=== PATIENT | female | born 2000 | race Caucasian/White ===

== ENCOUNTER 2023-06-27 09:30 | Outpatient (CLI) | payer BC, SELFPAY ==
--- OUTSIDE RECORDS SUMMARY | 2023-06-28 06:49 | XMS_ITS | Encounter Summary ---
Author Name Unknown Organization [facility] Address [address] [place] [address]. [place] [address] Care Team Providers Care Hand Turner Name Role Phone Nacho Davis PA-C Unavailable [phone] Nacho Davis PA-C Primary Care Provider [phone] Encounter Details Date Type Department Care Team (Latest Contact Info) Description 11/19/2022 Travel Social History Tobacco Use Types Packs/Day Years Used Date Smoking Tobacco: Never Assessed Sex and Gender Information Value Date Recorded Sex Assigned at Not on file Gender Identity Not on file Sexual Orientation Not on file COVID-19 Exposure Response Date Recorded In the last 10 days, have yo u been in contact with someone who was confirmed or suspected to have Coronavirus/COVID-19? No / Unsure 11/19/2022 9:34 AM CDT documented as of this encounter Plan of Treatment Not on file documented as of this encounter Visit Diagnoses Not on filedocumented in this encounter Additional Health Concerns Infection Onset Date Last Indicated Resolved Time Rule Out COVID-19 11/19/2022 11/19/2022 11/19/2022 2:21 PM CDT documented as of this encounter Care Teams Hand Turner Relationship Specialty Start Date End Date Nacho Davis PA-C [facility] [address] [place] [id number] PCP - General 11/19/22 Nacho Davis PA-C [facility] [address] [place] [id number] 11/19/22 documented as of this encounter
--- OUTSIDE RECORDS SUMMARY | 2023-06-28 06:49 | XMS_ITS | Continuity of Care Document ---
Author Name Unknown Organization [facility] Address [address] [address] [place] [address] Phone Care Team Providers Care Fork Operator Name Role Phone Unavailable Unavailable Unavailable Allergies, Adverse Reactions, Alerts Substance Reaction Status Criticality Penicillins Reaction Unknown Active No Informat ion Medications Medication Instructions Dosage Effective Dates (start - stop) Status Comments Vitamin unknown Take one tablet by mouth daily - Active Prevacid SoluTab 15 mg Rapid Dissolve Take one tablet by mouth two times per day - Active Procedures Procedure Date Ugi Endo; W/balloon Dilat Esop 06 Ugi Endo; W/bx 1/mx Offic Cons New/estab Mod-hi 60 06 Routine Serum Collection Advance Directives Directive Yes / No Effective Date File Name No Information Encounters Encounter Description Practice Location Reason(s) For Visit Diagnoses Date Provider Providers Copied on Encounter [facility], [address] [address], [place], [place], [id number], [place] tel:[phone] [facility] No Information 6 No Information [facility], [address] [address], [place], [place], [id number], [place] tel:[phone] [facility] No Information Feb- 5-200 6 No Information Referring Provider: Osmar Miranda MD [address], [place], [address]. tel:[phone] Offic Cons New/estab Mod-hi 60 [facility], [address] [address], [place], [place], [id number], [place] tel:[phone] [facility] Vomiting Alone 6 No Information Referring Provider: Osmar Miranda MD [address], [place], [address]. tel:[phone] Family History Family Member Type Diagnosis Age At Onset No Information Payers Payer name Insurance type Covered alliance party ID Authortirsoananda lenojesus(s) [employer] [facility] [id number] Social History Type Description Quantity Date Captured Comments Sex Female Smoking Status No Information Chief Complaint And Reason For Visit No Information Reason For Referral Reason For Referral No Information History Of Present Illness Encounter Date Complaint History Of Prese nt Illness No Information Functional Status Date Functional Assessmen t No Information Instructions Date Instruction Additional Infor mation No Information Assessments Type Assessment Date No Information Patient Care Teams Name Effective Dates (start - stop) Status Members No Information
--- OUTSIDE RECORDS SUMMARY | 2023-06-28 06:49 | XMS_ITS | Clinical Summary ---
Author Name Unknown Organization [facility] Address [place], [place] [address] Care Team Providers Care Card Puncher Name Role Phone Pcp, No Primary Care Provider Unavailabl e Allergies Active Allergy Reactions Criticality Noted Date Comments Amoxicillin Hives 08/23/2006 Penicillins Hives 02/25/2022 Medications No known medications Active Problems Problem Noted Date Diagnosed Date Other infants, unspecified (weight)(765. 10) 08/23/2006 Overview: 25 weeks Chronic respiratory disease arising in the perin atal period 08/23/2006 Anemia, unspecified 08/23/2006 Encounters Date Type Department Care Team Description 06/27/2023 Lab Requisition [facility] [phone] Nacho Davis, FAYC from Last 3 Months Immunizations Name Administration Dates Next Due DTaP 09/24/2003, 0,04/10/1999,01/30 HIB PRP-T (ActHIB,Hiberix) 01/30/1999 HIB-HepB (Comvax) 10/05/1999,10/05/1999 Hepatitis B (Peds) 01/03/1999,1998 Human Papilloma Virus Vaccine 12/07/2011 Inactivated Polio Vaccine 09/24/2003,07/06/1999, 01/30/1999 Influenza, IIV3 (Age >=3 years) 03/28/2006 MMR 09/24/2003,10/05/1999 Meningococcal Vaccine (Menveo) 12/07/2011 Pneumococcal conj 7-Valent (Prevnar 7) 1,04/04/2000 Tdap 12/07/2011 Varicella Vaccine 12/07/2011,10/05/1999 Social History Tobacco Use Types Packs/Day Years Used Date Smoking Tobacco: Never Smokeless Tobacco: Never Alcohol Use Standard Drinks/Week Comments Yes 0 (1 standard drink = 0.6 oz pur e alcohol) occasionally Sex and Gender Information Value Date Recorded Sex Assigned at Not on file Gender Identity Not on file Sexual Orientation Not on file Obstetrics History Last Filed Vital Signs Vital Sign Reading Time Taken Comments Blood Pressure 124/72 06/24/2022 8:59 AM CUPOLA TENDER Pulse 81 06/24/2022 8:59 AM [employer]OLA TENDER Temperature 36.4 ??C (97.5 ??F) 06/24/2022 8:59 AM CS T Respiratory Rate 18 06/24/2022 8:59 AM CUPOLA TENDER Oxygen Saturation 98% 06/24/2022 8:59 AM CUPOLA TENDER Inhaled Oxygen Concentration - - Weight 47.6 kg (105 lb) 06/08/2022 8:31 AM CUPOLA TENDER Height 157.5 cm (5' 2) 05/11/2021 11:26 AM C[employer]OLA TENDER Body Mass Index 19.2 05/11/2021 11:26 AM CUPOLA TENDER Plan of Treatment Health Maintenance Due Date Last Done Comments Depression screening for age 12+ 2010 HPV series for age 9-26 (2 - 2-dose series) 06/07/2012 12/07/2011 HIV for age 15-65 2013 Hepatitis C screening for ag e 18-79 2016 Chlamydia for age 16-24 08/04/2021 08/04/2020 Tetanus booster 12/06/2021 12/07/2011 BMI (ht and wt on same day) for age 18+ 05/11/2022 05/11/2021 COVID-19 vaccine series (3 - 2022- season) 2023 12/09/2020, 11/07/2020 Influenza for age 9-49 02/15/2023 03/28/2006 Pap test for age 21-65 07/06/2024 2, 07/06/2021 Pneumococcal series for age 6-64 Aged Out 07/25/2000, 04/04/2000 No longer eligible based on patient's age to complete this topic Tdap Completed 12/07/2011 Care Teams Card Puncher Relationship Specialty Start Date End Date Pcp, No . PCP - General 07/13/13
--- OUTSIDE RECORDS SUMMARY | 2023-06-28 06:49 | XMS_ITS | Encounter Summary ---
Author Name Unknown Organization [facility] Address [address] [facility] [place] [address] Care Team Providers Care [place] C[facility] Name Role Phone Nacho Davis PA-C Unavailable [phone] Nacho Davis PA-C Primary Care Provider [phone] Reason for Visit * Reason Comments Chills Encounter Details Date Type Department Care Team (Late st Contact Info) Description 11/19/2022 1:59 PM CDT - 11/19/2022 3:53 PM CDT Emergency [facility] Emergency Dept [address] [place] [address] [phone] Garfield Fraser MD [facility] [address] [place] [address] [place] [address] [id number] Abdominal pain, right lower quadrant; Calculus of gallbladder without cholecystitis without obstruction; Strep throat Discharge Disposition: Home or Self Care Social History Tobacco Use Types Packs/Day Years [...] AM CDT documented as of this encounter Last Filed Vital Signs Vital Sign Reading Time Taken Comments Blood Pressure 106/58 11/19/2022 3:50 PM CDT Pulse 95 11/19/2022 3:50 PM CDT Temperature 36.1 ??C (97 ??F) 11/19/2022 9:43 AM CDT Respiratory Rate 19 11/19/2022 9:43 AM CDT Oxygen Saturation 99% 11/19/2022 3:50 PM CDT Inhaled Oxygen Concentration - - Weight - - Height - - Body Mass Index - - documented in this encounter Discharge Instructions * Attachments The following attachments cannot be sent through Care Everywhere. * Pharyngitis, Strep (Confirmed) (Omani) * Gallstones, What are (Omani) documented in this encounter Medications at Time of Discharge Medication Sig Dispensed Refills Start Date End Date cephALEXin (KEFLEX) 500 MG capsule Take 1 capsule (500 mg) by mouth 4 times daily for 7 days 28 capsule 0 11/19/2022 11/26/2022 documented as of this encounter ED Notes * Wan Eckert RN - 11/19/2022 9:41 AM CDT Abdominal pain, shaking, hot and cold flashes and chills since this morning. Reports little PO intake, having period and abdominal cramps right now too. Hypertensive in triage otherwise VSS on RA. nauseated * Garfield Fraser MD - 11/19/2022 9:33 AM CDT History Chief Complaint: Chills The history is provided by the patient. She Villegas Lade is a 22 year old female who presents with abdominal pain. The patient reports that beginning this morning, she began feeling hot and subsequently became dizzy, shaky, and developed abdominal pain. She states that her abdominal pain has since resolved, but is having cramping from her period. She adds that she had diarrhea earlier this morning. She denies any sore throat, nausea, or urinary symptoms. She also denies being around anyone sick recently. She still has her appendix. Independent Historian: None - Patient Only Review of External Notes: Medications: The patient is not currently taking any prescribed medications. Past Medical History: Chronic respiratory disease arising in the period Anemia Past Surgical History: History reviewed. No pertinent past surgical history on file. Physical Exam Patient Vitals for the past 24 hrs: BP Temp Temp src Pulse Resp SpO2 11/19/22 0943 (!) 127/104 97 ??F (36.1 ??C) Temporal 58 19 100 % Physical Exam HENT: mmm, no rhinorrhea, mild posterior pharyngeal erythema no significant hypertrophy or exudates Eyes: periorbital tissues and sclera normal Neck: supple, no abnormal swelling, mild anterior cervical lymphadenopathy Lungs: CTAB, no resp distress CV: rrr, no m/r/g, ppi Abd: soft, tenderness in the right lower quadrant. No right upper quadrant tenderness,, nondistended, no rebound/masses/guarding/hsm Ext: no peripheral edema Skin: warm, dry, well perfused, no rashes/bruising/lesions on exposed skin Neuro: alert, MAEE, no gross motor or sensory deficits, gait stable Psych: Normal mood, normal affect Emergency Department Course Imaging: Abd/pelvis CT, IV contrast only TRAUMA / AAA Final Result IMPRESSION: 1. Appendix measures 6 mm and shows only minimal wall prominence. Findings are equivocal for appendicitis. No abscess or free air. If symptoms progress, repeat scanning should be considered. 2. Moderate free pelvic fluid. 3. Potential faint gallstones and mild gallbladder wall prominence. JONATHAN PARIKH MD SYSTEM ID: [id number] Report per radiology Laboratory: Labs Ordered and Resulted from Time of ED Arrival to Time of ED Departure BASIC METABOLIC PANEL - Abnormal Result Value Sodium 141 Potassium 3.5 Chloride 106 Carbon Dioxide (CO2) 21 (*) Anion Gap 14 Urea Nitrogen 15.1 Creatinine 0.77 Calcium 8.9 Glucose 142 (*) GFR Estimate >90 CBC WITH PLATELETS AND DIFFERENTIAL - Abnormal WBC Count 12.4 (*) RBC Count 4.32 Hemoglobin 13.9 Hematocrit 40.2 MCV 93 MCH 32.2 MCHC 34.6 RDW 12.2 Platelet Count 263 % Neutrophils 71 % Lymphocytes 18 % Monocytes 8 % Eosinophils 1 % Basophils 1 % Immature Granulocytes 1 NRBCs per 100 WBC 0 Absolute Neutrophils 9.0 (*) Absolute Lymphocytes 2.2 Absolute Monocytes 1.0 Absolute Eosinophils 0.1 Absolute Basophils 0.1 Absolute Immature Granulocytes 0.1 Absolute NRBCs 0.0 GROUP A STREPTOCOCCUS PCR THROAT SWAB - Abnormal Group A strep by PCR Detected (*) HCG QUALITATIVE - Normal hCG Serum Qualitative Negative INFLUENZA A/B, RSV, & SARS-COV2 PCR - Normal Influenza A PCR Negative Influenza B PCR Negative RSV PCR Negative SARS CoV2 PCR Negative Emergency Department Course & Assessments: Interventions: Medications cephALEXin (KEFLEX) capsule 500 mg (has no administration in time range) 0.9% sodium chloride BOLUS (0 mLs Intravenous Stopped 11/19/22 1111) ondansetron (ZOFRAN) injection 4 mg (4 mg Intravenous $Given 11/19/22 0955) ketorolac (TORADOL) injection 15 mg (15 mg Intravenous $Given 11/19/22 1427) CT Scan Flush (54 mLs Intravenous $Given 11/19/22 1434) iopamidol (ISOVUE-370) solution 500 mL (55 mLs Intravenous $Given 11/19/22 1434) Independent Interpretation (X-rays, CTs, rhythm strip): None Consultations/Discussion of Management or Tests: None Assessments: ED Course as of 11/19/22 1544 Mon Nov 19, 2022 1406 I obtained history and examined the patient as noted above. 1534 I rechecked the patient, who is amenable to discharge. Social Determinants of Health affecting care: None Disposition: The patient was discharged to home. Impression & Plan 22-year-old female presenting with abdominal pain myalgias and chills strep test did result as positive however she had localizing tenderness in the right lower quadrant on my examination and only mild pharyngeal erythematous changes. We had a shared decision making discussion about empiric treatment of strep versus further diagnostics given the right lower quadrant pain ultimately ended up doinga CT scan of the abdomen and pelvis this does not show significant findings of appendicitis and overall clinical scenario with the presenting symptoms exam diagnostics will discharge home treat the strep and follow clinically. She was made aware of incidental finding of cholelithiasis. Diagnosis: ICD-10-CM 1. Abdominal pain, right lower quadrant R10.31 2. Calculus of gallbladder without cholecystitis without obstruction K80.20 3. Strep throat J02.0 Discharge Medications: New Prescriptions CEPHALEXIN (KEFLEX) 500 MG CAPSULE Take 1 capsule (500 mg) by mouth 4 times daily for 7 days Scribe Disclosure: Lori, PRABHU DAVIS, am serving as a scribe at 3:23 PM on 11/19/2022 to document services personally performed by Garfield Fraser MD based on my observations and the provider's statements to me. 11/19/2022 Garfield Fraser MD Walker, Jerome Richard, MD 11/19/22 1546 documented in this encounter Plan of Treatment Not on file documented as of this encounter Procedures Procedure Name Priority Date/Time Associated Diagnosis Comments CT ABDOMEN PELVIS W CONTRAST STAT 11/19/2022 2:40 PM CDT INFLUENZA A/B, RSV, & SARS-COV2 PCR STAT 11/19/2022 1:24 PM CDT GROUP A STREPTOCOCCUS PCR THROAT SWAB STAT 11/19/2022 1:24 PM CDT EXTRA TUBE STAT 11/19/2022 9:54 AM CDT EXTRA BLUE TOP TUBE STAT 11/19/2022 9 :54 AM CDT CBC WITH PLATELETS AND DIFFERENTIAL STAT 11/19/2022 9:54 AM CDT CBC WITH PLATELETS & DIFFERENTIAL STAT 11/19/2022 9:54 AM CDT HCG QUALITATIVE STAT 11/19/2022 9:54 AM CDT BASIC METABOLIC PANEL STAT 11/19/2022 9:54 AM CDT documented in this encounter Results * Abd/pelvis CT, IV contrast only TRAUMA / AAA (11/19/2022 2:40 PM CDT) Anatomical Region Laterality Modality Abdomen/Pelvis, SUBRAD CT SINAN DY, UMP CT ABDOMEN PELVIS, RAD CT Computed Tomography Impressions 11/19/2022 3:15 PM CDT IMPRESSION: 1. ??Appendix measures 6 mm and shows only minimal wall prominence. Findings are equivocal for appendicitis. No abscess or free air. If symptoms progress, repeat scanning should be considered. 2. ??Moderate free pelvic fluid. 3. ??Potential faint gallstones and mild gallbladder wall prominence. JONATHAN PARIKH MD SYSTEM ID: ??[id number] Narrative 11/19/2022 3:[address] ABDOMEN PELVIS WITH CONTRAST 11/19/2022 2:40 PM CLINICAL HISTORY: Right lower quadrant pain, chills, nausea TECHNIQUE: CT scan of the abdomen and pelvis was performed following injection of IV contrast. Multiplanar reformats were obtained. Dose reduction techniques were used. CONTRAST: 55mL Isovue-370 COMPARISON: None. FINDINGS: LOWER CHEST: Normal. HEPATOBILIARY: Potential ill-defined gallstones and mild gallbladder wall prominence. No acute liver abnormality. PANCREAS: Normal. SPLEEN: Normal. ADRENAL GLANDS: Normal. KIDNEYS/BLADDER: Normal. BOWEL: The appendix demonstrates some mild wall prominence, and measures 0.6 cm series 3 image 144. No convincing adjacent inflammation. No bowel obstruction. Remainder of the bowel shows no acute abnormality. PELVIC ORGANS: Moderate free pelvic fluid. ADDITIONAL FINDINGS: None. MUSCULOSKELETAL: Normal. Procedure Note Jonathan Parikh MD - 11/19/2022 CT ABDOMEN PELVIS WITH CONTRAST 11/19/2022 2:40 PM CLINICAL HISTORY: Right lower quadrant pain, chills, nausea TECHNIQUE: CT scan of the abdomen and pelvis was performed following injection of IV contrast. Multiplanar reformats were obtained. Dose reduction techniques were used. CONTRAST: 55mL Isovue-370 COMPARISON: None. FINDINGS: LOWER CHEST: Normal. HEPATOBILIARY: Potential ill-defined gallstones and mild gallbladder wall prominence. No acute liver abnormality. PANCREAS: Normal. SPLEEN: Normal. ADRENAL GLANDS: Normal. KIDNEYS/BLADDER: Normal. BOWEL: The appendix demonstrates some mild wall prominence, and measures 0.6 cm series 3 image 144. No convincing adjacent inflammation. No bowel obstruction. Remainder of the bowel shows no acute abnormality. PELVIC ORGANS: Moderate free pelvic fluid. ADDITIONAL FINDINGS: None. MUSCULOSKELETAL: Normal. IMPRESSION: 1. Appendix measures 6 mm and shows only minimal wall prominence. Findings are equivocal for appendicitis. No abscess or free air. If symptoms progress, repeat scanning should be considered. 2. Moderate free pelvic fluid. 3. Potential faint gallstones and mild gallbladder wall prominence. JONATHAN PARIKH MD SYSTEM ID: [id number] Garfield Fraser MD IMG CT ORDERABL ES * Symptomatic Influenza A/B, RSV, & SARS-CoV2 PCR (COVID-19) Nasopharyngeal (11/19/2022 1:24 PM CDT) Influenza A PCR Negative Negative 11/19/2022 2:21 PM CDT [facility] Influenza B PCR Negative Negative 11/19/2022 2:21 PM CDT [facility] RSV PCR Negative Negative 11/19/2022 2:21 PM CDT [facility] SARS CoV2 PCR Negative Negative 11/19/2022 2:21 PM CDT [facility] Comment:NEGATIVE: SARS-CoV-2 (COVID-19) RNA not detected, presumed negative. Swab NASOPHARYNGEAL STRUCTURE / Unknown Non-blood Collection / Unknown 11/19/2022 1:24 PM CDT 11/19/2022 1:34 PM CDT [facility] - 11/19/2022 2:21 PM CDT Testing was performed using the Xpert Xpress CoV2/Flu/RSV Assay on the [employer] GeneXpert Instrument. This test should be ordered for the detection of SARS-CoV-2, influenza, and RSV viruses in individuals who meet clinical and/or epidemiological criteria. Test performance is unknown in asymptomatic patients. This test is for in vitro diagnostic use under the FDA EUA for laboratories certified under CLIA to perform high or moderate complexity testing. This test has not been FDA cleared or approved. A negative result does not rule out the presence of PCR inhibitors in the specimen or target RNA in concentration below the limit of detection for the assay. If only one viral target is positive but coinfection with multiple targets is suspected, the sample should be re-tested with another FDA cleared, approved, or authorized test, if coinfection would change clinical management. This test was validated by the [facility] [employer]. These laboratories are certified under the Clinical Laboratory Improvement Amendments of 1988 (CLIA-88) as qualified to perform high complexity laboratory testing. Micky Araiza MD LAB - MICRO GENER AL ORDERABLES [facility] Lab [address] Lab (1st floor, no room number) [place] [address], [facility] [phone] * (ABNORMAL) Group A Streptococcus PCR Throat Swab (11/19/2022 1:24 PM CDT) Pathologist [facility] Group A strep by PCR Detected( A) Not Detected 11/19/2022 2:10 PM CDT [facility] Swab STRUCTURE OF ANTERIOR PORTION OF NECK / Unknown Non-blood Collection / Unknown 11/19/2022 1:24 PM CDT 11/19/2022 1:34 PM CDT [facility] - 11/19/2022 2:10 PM CDT The Xpert Xpress Strep A test, performed on the [employer] Systems, is a rapid, qualitative in vitro diagnostic test for the detection of Streptococcus pyogenes (Group A ? - hemolytic Streptococcus, Strep A) in throat swab specimens from patients with signs and symptoms of pharyngitis. The Xpert Xpress Strep A test can be used as an aid in the diagnosis of Group A Streptococcal pharyngitis. The assay is not intended to monitor treatment for Group A Streptococcus infections. The Xpert Xpress Strep A test utilizes an automated real-time polymerase chain reaction (PCR) to detect Streptococcus pyogenes DNA. Micky Araiza MD LAB - MICRO GENER AL ORDERABLES LABORATORY [facility] Acute Care Lab [address] Lab (1st floor, no room number) [place] [address] [phone] * (ABNORMAL) CBC with platelets and differential (11/19/2022 9:54 AM CDT) Pathologist [facility] WBC Count 12.4(H) 4.0 - 11.0 10e3/uL 11/19/2022 10:06 AM CDT [facility] RBC Count 4.32 3.80 - 5.20 10e6/uL 11/19/2022 10:06 AM CDT [facility] Hemoglobin 13.9 11.7 - 15.7 g/dL 11/19/2022 10:06 AM CDT [facility] Hematocrit 40.2 35.0 - 47.0 % 11/19/2022 10:06 AM CDT [facility] MCV 93 78 - 100 fL 11/19/2022 10:06 AM CDT [facility] MCH 32.2 26.5 - 33.0 pg 11/19/2022 10:06 AM CDT [facility] MCHC 34.6 31.5 - 36.5 g/dL 11/19/2022 10:06 AM CDT [facility] RDW 12.2 10.0 - 15.0 % 11/19/2022 10:06 AM CDT [facility] Platelet Count 263 150 - 450 10e3/uL 11/19/2022 10:06 AM CDT [facility] % Neutrophils 71 % 11/19/2022 10:06 AM CDT [facility] % Lymphocytes 18 % 11/19/2022 10:06 AM CDT [facility] % Monocytes 8 % 11/19/2022 10:06 AM CDT [facility] % Eosinophils 1 % 11/19/2022 10:06 AM CDT [facility] % Basophils 1 % 11/19/2022 10:06 AM CDT [facility] % Immature Granulocytes 1 % 11/19/2022 10:06 AM CDT [facility] NRBCs per 100 WBC 0 <1 /100 023 10:06 AM CDT [facility] Absolute Neutrophils 9.0(H) 1.6 - 8.3 10e3/uL 11/19/2022 10:06 AM CDT [facility] Absolute Lymphocytes 2.2 0.8 - 5.3 10e3/uL 11/19/2022 10:06 AM CDT [facility] Absolute Monocytes 1.0 0.0 - 1.3 10e3/uL 11/19/2022 10:06 AM CDT [facility] Absolute Eosinophils 0.1 0.0 - 0.7 10e3/uL 11/19/2022 10:06 AM CDT [facility] Absolute Basophils 0.1 0.0 - 0.2 10e3/uL 11/19/2022 10:06 AM CDT [facility] Absolute Immature Granulocytes 0.1 <=0.4 10e3/uL 11/19/2022 10:06 AM CDT [facility] Absolute NRBCs 0.0 10e3/uL 11/19/2022 10:06 AM CDT [facility] Blood BLOOD SPECIMEN / Unknown Venipuncture / Unknown 11/19/2022 9:54 AM CDT 11/19/2022 10:04 AM CDT Garfield Fraser MD LAB - BLOOD ORD ERABLES LABORATORY [facility] Acute Care Lab [address] Lab (1st floor, no room number) [place] [phone], [facility] [phone] * Extra Blue Top Tube (11/19/2022 9:54 AM CDT) Hold Specimen JIC 11/19/2022 11:16 AM CDT LABORATORY Blood STRUCTURE OF RIGHT UPPER LIMB / Unknown Venipuncture / Unknown 11/19/2022 9:54 AM CDT 11/19/2022 10:04 AM CDT Garfield Fraser MD LAB - BLOOD ORD ERABLES Performing Organization Address [facility]/ZIP Co de Phone Number [facility] [address] Lab (1st floor, no room number) [place] [address], [facility] [phone] * HCG QUALitative (blood) (11/19/2022 9:54 AM CDT) Pathologist [facility] hCG Serum Qualitative Negative Negative JACINTA 11/19/2022 10:26 AM CDT [facility] Comment:This test is for scr eening purposes. Results should be interpreted along with the clinical picture. Confirmation testing is available if warranted by ordering [id number], HCG Quantitative . Blood BLOOD SPECIMEN / Unknown Venipuncture / Unknown 11/19/2022 9:54 AM CDT 11/19/2022 10:02 AM CDT Garfield Fraser MD LAB - BLOOD ORD ERABLES LABORATORY [facility] Lab [address] Lab (1st floor, no room number) [place] [address], [facility] [phone] * (ABNORMAL) Basic metabolic panel (BMP) (11/19/2022 9:54 AM CDT) Pathologist [facility] Sodium 141 136 - 145 mmol/L 11/19/2022 10:24 AM CDT LABORATORY Potassium 3.5 3.4 - 5.3 mmol/L 11/19/2022 10:24 AM CDT LABORATORY Chloride 106 98 - 107 mmol/L 11/19/2022 10:24 AM CDT LABORATORY Carbon Dioxide (CO2) 21(L) 22 - 29 mmol/L 11/19/2022 10:24 AM CDT LABORATORY Anion Gap 14 7 - 15 mmol/L 11/19/2022 10:24 AM CDT LABORATORY Urea Nitrogen 15.1 6.0 - 20.0 mg/dL 11/19/2022 10:24 AM CDT LABORATORY Creatinine 0.77 0.51 - 0.95 mg/dL 11/19/2022 10:24 AM CDT LABORATORY Calcium 8.9 8.6 - 10.0 mg/dL 11/19/2022 10:24 AM CDT LABORATORY Glucose 142(H) 70 - 99 mg/dL 11/19/2022 10:24 AM CDT LABORATORY GFR Estimate >90 >60 mL/min/1.7 3m2 11/19/2022 10:24 AM CDT LABORATORY Comment:eGFR calculated usin 2020 CKD-EPI equation. Blood BLOOD SPECIMEN / Unknown Venipuncture / Unknown 11/19/2022 9:54 AM CDT 11/19/2022 10:04 AM CDT Garfield Fraser MD LAB - BLOOD ORD ERABLES LABORATORY [facility] Lab [address] [facility] Lab (1st floor, no room number) [place] [address], [facility] [phone] documented in this encounter Visit Diagnoses Diagnosis Abdominal pain, right lower quadrant Calculus of gallbladder without cholecystitis without obstruction Calculus of gallbladder without mention of cholecystitis or obstruction Strep throat Streptococcal sore throat documented in this encounter Administered Medications Inactive Administered Medications - up to 3 most recent administrations Medication Order MAR Action Action Date Dose Rate Site 0.9% sodium chloride BOLUS Intravenous, 1,000 mL, ONCE, at 1,000 mL/hr, Administer over 1 Hours, On Sat11/19/22 at 0950, For 1 dose $New Bag 11/19/2022 9:55 AM CDT 1,000 mLs 1000 mL/hr cephALEXin (KEFLEX) capsule 500 mg STAT, 500 mg, Oral, ONCE, On Sat11/19/22 at 1540, For 1 dose, Indications: strep $Given 11/19/2022 3:50 PM [address]T [address] Scan Flush Intravenous, 100 mL, ONCE, On Sat11/19/22 at 1435, For 1 dose, This entry is for use by Radiology to intermittently used as a flush in patients receiving a CT scan. $Given 11/19/2022 2:34 PM CDT 54 mLs iopamidol (ISOVUE-370) solution 500 mL 500 mL, Intravenous, ONCE, On Sat11/19/22 at 1435, For 1 dose $Given 11/19/2022 2:34 PM CDT 55 mLs ketorolac (TORADOL) injection 15 mg 15 mg, Intravenous, ONCE, On Sat11/19/22 at 1425, For 1 dose, Can cause pain on injection. If ordered intravenously (IV) : administer through a running maintenance fluid over 1 minute followed by a flush. If patient complains of pain on injection, may dilute 15-30 mg in 5 mL and push over 1 to 2 minutes. $Given 11/19/2022 2:27 PM CDT 15 mg ondansetron (ZOFRAN) injection 4 mg 4 mg, Intravenous, ONCE, Administer over 2-5 Minutes, On Sat11/19/22 at 0950, For 1 dose, Irritant. $Given 11/19/2022 9:55 AM CDT 4 mg documented in this encounter Active and Recently Administered Medications Times are shown in CDT. Scheduled Medication Order 11/17/2022 11/18/2022 11/19/2022 0.9% sodium chloride BOLUS (COMPLETED) Intravenous, 1,000 mL, ONCE, at 1,000 mL/hr, Administer over 1 Hours, On Sat11/19/22 at 0950, For 1 dose 0955 ($New Bag - Pro vider: Wan Eckert RN)1111 (Stopped - Provider: Wan Eckert RN) cephALEXin (KEFLEX) capsule 500 mg (COMPLETED) STAT, 500 mg, Oral, ONCE, On Sat11/19/22 at 1540, For 1 dose, Indications: strep 1550 ($Given - Provi madan: Elicia Obrien RN) CT Scan Flush (COMPLETED) Intravenous, 100 mL, ONCE, On Sat11/19/22 at 1435, For 1 dose, This entry is for use by Radiology to intermittently used as a flush in patients receiving a CT scan. 1434 ($Given - Provi madan: Shama A Lamey) iopamidol (ISOVUE-370) solution 500 mL (COMPLETED) 500 mL, Intravenous, ONCE, On Sat11/19/22 at 1435, For 1 dose 1434 ($Given - Provi madan: Shama A Lamey) ketorolac (TORADOL) injection 15 mg (COMPLETED) 15 mg, Intravenous, ONCE, On Sat11/19/22 at 1425, For 1 dose, Can cause pain on injection. If ordered intravenously (IV) : administer through a running maintenance fluid over 1 minute followed by a flush. If patient complains of pain on injection, may dilute 15-30 mg in 5 mL and push over 1 to 2 minutes. 1427 ($Given - Provi madan: Geena Calvillo RN) ondansetron (ZOFRAN) injection 4 mg (COMPLETED) 4 mg, Intravenous, ONCE, Administer over 2-5 Minutes, On Sat11/19/22 at 0950, For 1 dose, Irritant. 0955 ($Given - Provi madan: Wan Eckert RN) documented in this encounter Additional Health Concerns Infection Onset Date Last Indicated Resolved Time Rule Out COVID-19 11/19/2022 11/19/2022 11/19/2022 2:21 PM CDT documented as of this encounter Care Teams [place] [facility] Relationship Specialty Start Date End Date Nacho Davis PA-C [facility] [address] [place] [address] PCP - General 11/19/22 Nacho Davis PA-C [facility] [address] [place] [address] 11/19/22 documented as of this encounter
--- OUTSIDE RECORDS SUMMARY | 2023-06-28 06:49 | XMS_ITS | Clinical Summary ---
Author Name Unknown Organization [facility] Address [address] [place] [address]. [place] [address] Care Team Providers Care Commissary Steward Name Role Phone Nacho Davis PA-C Unavailable [phone] Nacho Davis PA-C Primary Care Provider [phone] Allergies Active Allergy Reactions Criticality Noted Date Comments Penicillin G 11/19/2022 Social History Tobacco Use Types Packs/Day Years Used Date Smoking Tobacco: Never Assessed Adolescent Education Answer Date Record ed Getting School Help Needed Not on file 04/02 Sex and Gender Information Value Date Recorded Sex Assigned at Not on file Gender Identity Not on file Sexual Orientation Not on file Last Filed Vital Signs Vital Sign Reading Time Taken Comments Blood Pressure 106/58 11/19/2022 3:50 PM CDT Pulse 95 11/19/2022 3:50 PM CDT Temperature 36.1 ??C (97 ??F) 11/19/2022 9:43 AM CDT Respiratory Rate 19 11/19/2022 9:43 AM CDT Oxygen Saturation 99% 11/19/2022 3:50 PM CDT Inhaled Oxygen Concentration - - Weight - - Height - - Body Mass Index - - Plan of Treatment Health Maintenance Due Date Last Done Comments ADVANCE CARE PLANNING 1998 ANNUAL REVIEW OF HM ORDERS 1998 CHLAMYDIA SCREENING 1998 YEARLY PREVENTIVE VISIT 1998 HIV SCREENING 2013 HEPATITIS C SCREENING 2016 PAP 09/30/2019 DTAP/TDAP/TD IMMUNIZATION (6 - Td or Tdap) 12/06/2021 12/07/2011, 09/24/2003, 12/22/1999, Additional history exists COVID-19 Vaccine ( season) 2023 12/09/2020, 11/07/2020 INFLUENZA VACCINE (#1) 2023 8, 05/02/2007, 03/28/2006 PHQ-2 (once per calendar year) 2023 HEPATITIS B IMMUNIZATION Completed 000, 01/03/1999, 1998 Pneumococcal Vaccine: Pediatrics (0 to 5 Years) and At-Risk Patients (6 to 64 Years) Aged Out 07/25/2000, 04/04/2000 No longer eligibl e based on patient's age to complete this topic IPV IMMUNIZATION Completed 09/24/2003, , 01/30/1999 MENINGITIS IMMUNIZATION Aged Out 12/07/2011, 05/24 No longer eligible based on patient's age to complete this topic HPV IMMUNIZATION Completed 02/26/2014, 12/07/2011 RSV MONOCLONAL ANTIBODY Aged Out No l onger eligible based on patient's age to complete this topic Care Teams Commissary Steward Relationship Specialty Start Date End Date Nacho Davis PA-C [address] [place] [address] PCP - General 11/19/22 Nacho Davis PA-C [address] [place] [address] 11/19/22
--- OUTSIDE RECORDS SUMMARY | 2023-06-28 06:49 | XMS_ITS | Referral Summary ---
Author Name Unknown Organization [facility] Address [address] [place] [address]. [place] [address] Care Team Providers Care Oil Program Compliance Specialist Name Role Phone Nacho Davis PA-C Unavailable [phone] Nacho Davis PA-C Primary Care Provider [phone] Allergies Active Allergy Reactions Criticality Noted Date [...] Mass Index - - Plan of Treatment Not on file Care Teams Oil Program Compliance Specialist Relationship Specialty Start Date End Date Nacho Davis PA-C [place] [address] [place] [address] PCP - General 11/19/22 Nacho Davis PA-C [place] [address] [place] [address] 11/19/22
== END 2023-06-27 09:31 | disposition home or self-care (01) ==
LOC: NFLDREF 06-28 06:47
PROVIDERS: PCP Physician Assistant Medical; Referring Provider Physician Assistant Medical; Visit Provider Physician Assistant Medical
DX: Z00.00 Encounter for general adult medical examination without abnormal findings (principal); R51.9 Headache, unspecified; G44.221 Chronic tension-type headache, intractable; Z11.3 Encounter for screening for infections with a predominantly sexual mode of transmission
CPT/HCPCS: 87491; 87591

== ENCOUNTER 2024-10-12 09:05 | Outpatient (CLI) | payer BC, SELFPAY | END 2024-10-12 09:06 | disposition home or self-care (01) | PROVIDERS: PCP Physician Assistant Medical; Visit Provider Physician Assistant Medical | DX: R51.9 Headache, unspecified (principal); G47.00 Insomnia, unspecified; Z13.29 Encounter for screening for other suspected endocrine disorder; Z13.6 Encounter for screening for cardiovascular disorders | CPT/HCPCS: 80053; 80061; 84443 ==

== ENCOUNTER 2025-03-26 10:32 | Outpatient (CLI) | payer OTHER, SELFPAY ==
--- NOTE | 2025-03-26 10:45 | CRLHL7_ITS ---
For Patients: As a result of the Century Cures Act, medical imaging exams and procedure reports are released immediately into your electronic medical record. You may view this report before your referring provider. If you have questions, please contact your health care provider. Indication: Palpable lump on right side of neck Technique: Grayscale and color Doppler ultrasound of the right neck soft tissues performed in the area of concern. Comparison: None Findings: Subcutaneous hypoechoic nodule noted which measures 5 x 2 x 8 millimeters. Mild internal color flow noted along with a subtle fatty hilum. Impression: Normal subcutaneous lymph node. Dictated by Gerald Payne MD @ 03/26/2025 11:07:57 AM (Electronically Signed)
== END 2025-03-26 10:33 | disposition home or self-care (01) ==
LOC: US 10:33
PROVIDERS: PCP Physician Assistant Medical; Visit Provider Physician Assistant Medical
DX: R22.1 Localized swelling, mass and lump, neck (principal)
CPT/HCPCS: 76536